=== PATIENT | female | born 1975 | race Caucasian/White ===

== ENCOUNTER 2018-04-02 18:38 | Emergency (ER) | payer OTHER ==
[~2018-04-02] VITALS: Ht 172.7 cm; Wt 99.8 kg
[~2018-04-02 18:38] MED LIST: AMITRIPTYLINE H25 M3 PO; AMITRIPTYLINE H50 M3 PO; AMOXICILLIN875 MG; AMOXICILLIN875 MG PO; CALCIUM PO; CIPRO250 MG PO; CIPROFLOXACIN500 M1 PO; CYCLOBENZAPRINE10 MG PO; FLEXERIL; FLEXERIL PO; HYDROCODONE-AP1 EAC6 PO; IBUPROFEN 800800 M1 PO; IRON PO; KEFLEX500 MG PO; MULTIVITAMINS PO; NAPROSYN500 MG PO; NORCO 5-325 TA1 EAC1 PO; NORCO 5-325 TA1 EACH PO; OMEPRAZOLE5 GM MC; PHENERGAN12.5 M2 RC; PREDNISONE 20 M20 MG PO; PROAIR HFA8.5 GM INH; PROTONIX40 M1 PO; ROBAXIN 750 MG750 MG PO; TRAMADOL 50 MG50 MG; TRAMADOL 50 MG50 MG PO; VICODIN; VITAMIN D400 UNI1 PO; ZOFRAN ODT4 MG PO; ZOFRAN4 MG PO; [UNRECOGNIZED DRUG - OTHER]
[2018-04-02] MEDS ORDERED: NORCO 5-325 TA1 EACH PO (19:49)
[2018-04-02] MEDS ORDERED: NABUMETONE 750750 M1 PO (19:49)
[2018-04-02 20:24] VITALS: BP 116/83
== END 2018-04-02 20:25 | disposition home or self-care (01) ==
LOC: M.ERS 18:38
DX: T22.212A Burn of second degree of left forearm, initial encounter (principal); T20.10XA Burn of first degree of head, face, and neck, unspecified site, initial encounter; T20.17XA Burn of first degree of neck, initial encounter; G43.909 Migraine, unspecified, not intractable, without status migrainosus; Z90.710 Acquired absence of both cervix and uterus; T65.91XA Toxic effect of unspecified substance, accidental (unintentional), initial encounter; Y92.9 Unspecified place or not applicable

== ENCOUNTER 2018-04-08 21:19 | Emergency (ER) | payer OTHER ==
[~2018-04-08] VITALS: Ht 172.7 cm; Wt 99.8 kg
[~2018-04-08 21:19] MED LIST changes: +NABUMETONE 750750 M1 PO
[2018-04-08 21:40] LABS: URINE BLOOD 2+ (Negative); URINE CLARITY CLEAR; URINE COLOR YELLOW; URINE GLUCOSE-RANDOM NEGATIVE (Negative); URINE KETONES 1+ (Negative); URINE LEUKOCYTES-REFLEX NEGATIVE (Negative); URINE NITRITE-REFLEX NEGATIVE (Negative); URINE PROTEIN NEGATIVE (Negative); URINE SPECIFIC GRAVITY >= 1.030 (1.005-1.030); URINE UROBILINOGEN 0.2 E.U./dl (0.2-1.0)
[2018-04-08 21:47] LABS: ICTOTEST (BILI CONFIRMATORY) Negative (Negative); URINE BILIRUBIN 1+ (Negative)
[2018-04-08 21:48] LABS: BACTERIA-REFLEX >30 Many /HPF (None Seen); CRYSTALS None Seen /LPF (None Seen); MUCUS 0-3 Light strn/LPF (None Seen); SQUAMOUS >10 Many /LPF (0-3); URINE WBC-REFLEX 0-5 Rare /HPF (0-5)
[2018-04-08 21:49] LABS: CASTS None Seen /LPF (None Seen); URINE RBC 3-10 Few /HPF (0-2)
[2018-04-08 21:54] LABS: HEMATOCRIT 44.6 % (37.0-47.0); MCH 32.4 pg (26.0-34.0); MCHC 33.7 g/dL (28.0-37.0); MCV 96.2 fL (80.0-100.0); MPV 8.4 fl. (7.2-11.1); NUCLEATED RBCS 0 /100WBC; PLATELET COUNT* 228 thou/uL (150-400); RBC 4.64 mil/uL (4.20-5.00); RDW-CV 12.7 % (10.5-14.5)
[2018-04-08 21:59] LABS: CALCIUM 9.6 mg/dL (8.5-10.1); CREATININE 0.8 mg/dL (0.6-1.3); POTASSIUM 3.6 mmol/L (3.5-5.1)
[2018-04-08 22:04] LABS: ALBUMIN 3.8 g/dL (3.4-5.0); TOTAL BILIRUBIN 0.7 mg/dL (<0.1-1.0); TOTAL PROTEIN 8.4 g/dL (6.4-8.2)
[2018-04-08 22:20] LABS: INFLUENZA A ANTIGEN None Detected (None Detect); INFLUENZA B ANTIGEN None Detected (None Detect)
[2018-04-08 22:47] LABS: ABSOLUTE EOSINOPHILS 0.2 thou/uL (0.0-0.7); ABSOLUTE LYMPHOCYTES 2.2 thou/uL (0.8-5.3); ABSOLUTE MONOCYTES 1.8 thou/uL (0.0-1.2); ABSOLUTE NEUTROPHILS 17.8 thou/uL (1.6-8.1)
[2018-04-08 22:48] LABS: PLATELET ESTIMATE ADEQUATE
[2018-04-09] MEDS ORDERED: ZOFRAN4 MG PO (00:36)
[2018-04-09 00:52] VITALS: BP 156/97
== END 2018-04-09 00:55 | disposition still patient (30) ==
LOC: M.ERS 21:19
PROVIDERS: Physician Assistant
DX: R11.2 Nausea with vomiting, unspecified (principal); G43.909 Migraine, unspecified, not intractable, without status migrainosus; Z90.710 Acquired absence of both cervix and uterus; Z79.899 Other long term (current) drug therapy

== ENCOUNTER 2018-10-08 08:05 | Emergency (ER) | payer OTHER ==
[~2018-10-08] VITALS: Ht 172.7 cm; Wt 104.3 kg
[2018-10-08] MEDS ORDERED: PROTONIX 20 MG20 MG PO (08:15)
[2018-10-08] MEDS ORDERED: CYCLOBENZAPRINE5 MG PO (08:42)
[2018-10-08] MEDS ORDERED: NORCO 5-325 TA1 EACH PO (08:42)
[2018-10-08] MEDS ORDERED: IBUPROFEN 800800 MG PO (08:42)
[2018-10-08 08:53] VITALS: BP 142/88
== END 2018-10-08 08:53 | disposition home or self-care (01) ==
LOC: M.ERS 08:05
DX: S86.811A Strain of other muscle(s) and tendon(s) at lower leg level, right leg, initial encounter (principal); G43.909 Migraine, unspecified, not intractable, without status migrainosus; Z90.710 Acquired absence of both cervix and uterus; W18.39XA Other fall on same level, initial encounter; Y93.89 Activity, other specified; Y92.89 Other specified places as the place of occurrence of the external cause; Y99.8 Other external cause status

== ENCOUNTER 2019-02-26 16:24 | Emergency (ER) | payer OTHER ==
[~2019-02-26] VITALS: Ht 172.7 cm; Wt 106.6 kg
[~2019-02-26 16:24] MED LIST changes: +CYCLOBENZAPRINE5 MG PO; +IBUPROFEN 800800 MG PO; +PROTONIX 20 MG20 MG PO
[2019-02-26] MEDS ORDERED: OMEPRAZOLE10 MG PO (16:40)
[2019-02-26] MEDS ORDERED: TRAZODONE HCL50 MG PO (16:40)
[2019-02-26] MEDS ORDERED: FLEXERIL PO (17:45)
[2019-02-26 18:05] VITALS: BP 127/83
== END 2019-02-26 18:07 | disposition home or self-care (01) ==
LOC: M.ERS 16:24
DX: M62.830 Muscle spasm of back (principal); G43.909 Migraine, unspecified, not intractable, without status migrainosus; Z90.710 Acquired absence of both cervix and uterus

== ENCOUNTER 2020-01-13 07:50 | Emergency (ER) | payer BC ==
[~2020-01-13] VITALS: Ht 175.3 cm; Wt 113.4 kg
[~2020-01-13 07:50] MED LIST changes: +OMEPRAZOLE10 MG PO; +TRAZODONE HCL50 MG PO
[2020-01-13] MEDS ORDERED: LIPITOR 20 MG T20 M1 PO (07:56)
[2020-01-13] MEDS ORDERED: HORMONE PATCH (07:56)
[2020-01-13] MEDS ORDERED: FLEXERIL PO (07:56)
[2020-01-13 08:22] LABS: ABSOLUTE BASOPHILS 0.1 thou/uL (0.0-0.2); ABSOLUTE LYMPHOCYTES 1.8 thou/uL (0.8-5.3); ABSOLUTE MONOCYTES 0.5 thou/uL (0.0-1.2); ABSOLUTE NEUTROPHILS 10.8 thou/uL (1.6-8.1); BASOPHILS 0.5 %; EOSINOPHILS 0.1 %; HEMATOCRIT 43.6 % (37.0-47.0); HEMOGLOBIN 15.2 gm/dL (12.0-15.0); LYMPHOCYTES 13.9 %; MCH 32.9 pg (26.0-34.0); MCHC 34.8 g/dL (28.0-37.0); MCV 94.4 fL (80.0-100.0); MONOCYTES 3.9 %; MPV 8.3 fl. (7.2-11.1); NUCLEATED RBCS 0 /100WBC; PLATELET COUNT* 227 thou/uL (150-400); POLYS 81.6 %; RBC 4.62 mil/uL (4.20-5.00); RDW-CV 12.3 % (10.5-14.5); WBC 13.2 thou/uL (4.0-11.0)
[2020-01-13 08:29] LABS: CALCIUM 8.9 mg/dL (8.5-10.1); CREATININE 0.9 mg/dL (0.6-1.3); POTASSIUM 3.8 mmol/L (3.5-5.1)
[2020-01-13 08:33] LABS: TOTAL BILIRUBIN 0.2 mg/dL (<0.1-1.0)
[2020-01-13 09:46] LABS: URINE BILIRUBIN NEGATIVE (Negative); URINE BLOOD NEGATIVE (Negative); URINE CLARITY CLEAR; URINE COLOR YELLOW; URINE GLUCOSE-RANDOM NEGATIVE (Negative); URINE KETONES 1+ (Negative); URINE LEUKOCYTES-REFLEX NEGATIVE (Negative); URINE NITRITE-REFLEX NEGATIVE (Negative); URINE PROTEIN NEGATIVE (Negative); URINE UROBILINOGEN 0.2 E.U./dl (0.2-1.0)
[2020-01-13] MEDS ORDERED: PROTONIX40 M1 PO (10:51)
[2020-01-13] MEDS ORDERED: ZOFRAN ODT4 MG PO (10:51)
[2020-01-13 10:56] VITALS: BP 148/77
--- NOTE | 2020-01-13 16:03 | EKG ---
[place] [address] ELECTROCARDIOGRAM REPORT Name: CHANG HUGHES Room: [facility]#: [id number] Admission: 01/13/20 Attend Phys: Discharge: 01/13/20 Date of : 71 Date of Service: 01/13/20 0839 Report #: [id number] THIS REPORT FOR: //name// [facility] ED Test Date: 2020-01-13 Test Time: 08:39:02 Pat Name: CHANG HUGHES Department: Room: Gender: F Advisory Intern: : 1975 Requested By: Santana Estrella Order Number: [id number] MD: Ramos Loco Measurements Intervals [place] Rate: 97 P: 70 MS: 177 QRS: 7 QRSD: 108 T: 44 QT: 382 QTc: 486 Interpretive Statements Sinus rhythm Borderline prolonged QT interval Compared to ECG 04/18/2011 09:46:51 Sinus tachycardia no longer present Electronically Signed On 01-13-2020 16:03:29 CDT by Ramos Loco [email or web address] <ELECTRONICALLY SIGNED> By: Ramos Loco MD, [facility] 01/13/20 1603 0839 0839 Ramos Loco MD, [facility] /EPI
== END 2020-01-13 10:57 | disposition home or self-care (01) ==
LOC: M.ERS 07:50
PROVIDERS: Family Medicine
DX: R11.2 Nausea with vomiting, unspecified (principal); F10.129 Alcohol abuse with intoxication, unspecified; Y90.1 Blood alcohol level of 20-39 mg/100 ml; R10.13 Epigastric pain; G43.909 Migraine, unspecified, not intractable, without status migrainosus; Z90.710 Acquired absence of both cervix and uterus

== ENCOUNTER 2020-03-28 01:39 | Emergency (ER) | payer OTHER ==
[~2020-03-28] VITALS: Ht 175.3 cm; Wt 113.4 kg
[~2020-03-28 01:39] MED LIST changes: +HORMONE PATCH; +LIPITOR 20 MG T20 M1 PO
[2020-03-28 02:14] LABS: ABSOLUTE BASOPHILS 0.1 thou/uL (0.0-0.2); ABSOLUTE LYMPHOCYTES 2.9 thou/uL (0.8-5.3); ABSOLUTE NEUTROPHILS 13.3 thou/uL (1.6-8.1); BASOPHILS 0.6 %; EOSINOPHILS 0.2 %; HEMATOCRIT 45.2 % (37.0-47.0); HEMOGLOBIN 15.7 gm/dL (12.0-15.0); LYMPHOCYTES 16.7 %; MCH 32.9 pg (26.0-34.0); MCHC 34.7 g/dL (28.0-37.0); MCV 94.8 fL (80.0-100.0); MONOCYTES 5.6 %; MPV 8.4 fl. (7.2-11.1); NUCLEATED RBCS 0 /100WBC; PLATELET COUNT* 265 thou/uL (150-400); POLYS 76.9 %; RBC 4.77 mil/uL (4.20-5.00); RDW-CV 13.4 % (10.5-14.5); WBC 17.3 thou/uL (4.0-11.0)
[2020-03-28 02:21] LABS: URINE BILIRUBIN NEGATIVE (Negative); URINE BLOOD TRACE (Negative); URINE CLARITY CLEAR; URINE COLOR YELLOW; URINE GLUCOSE-RANDOM NEGATIVE (Negative); URINE KETONES 1+ (Negative); URINE LEUKOCYTES-REFLEX NEGATIVE (Negative); URINE NITRITE-REFLEX NEGATIVE (Negative); URINE PROTEIN NEGATIVE (Negative); URINE SPECIFIC GRAVITY 1.025 (1.005-1.030); URINE UROBILINOGEN 0.2 E.U./dl (0.2-1.0)
[2020-03-28 02:23] LABS: CALCIUM 9.5 mg/dL (8.5-10.1); POTASSIUM 3.5 mmol/L (3.5-5.1)
[2020-03-28 02:27] LABS: ALBUMIN 4.2 g/dL (3.4-5.0); TOTAL BILIRUBIN 0.5 mg/dL (<0.1-1.0); TOTAL PROTEIN 8.6 g/dL (6.4-8.2)
[2020-03-28 02:28] LABS: AMP/METHAMP Negative (Negative); BARBITURATES Negative (Negative); BENZODIAZEPINES Negative (Negative); COCAINE Negative (Negative); METHADONE Negative (Negative); OPIATES Negative (Negative); PCP Negative (Negative); THC POSITIVE (Negative)
[2020-03-28] MEDS ORDERED: CARAFATE 1 GM TA1 GM PO (03:24)
[2020-03-28] MEDS ORDERED: PREVACID 24HR15 MG PO (03:24)
[2020-03-28] MEDS ORDERED: ZOFRAN ODT4 MG PO (03:24)
[2020-03-28 04:00] VITALS: BP 130/79
== END 2020-03-28 04:01 | disposition home or self-care (01) ==
LOC: M.ERS 01:39
PROVIDERS: Personal Emergency Response Attendant
DX: R11.2 Nausea with vomiting, unspecified (principal); G43.909 Migraine, unspecified, not intractable, without status migrainosus; Z90.710 Acquired absence of both cervix and uterus

== ENCOUNTER 2020-04-02 07:09 | Emergency (ER) | payer OTHER ==
[~2020-04-02] VITALS: Ht 175.3 cm; Wt 113.4 kg
[~2020-04-02 07:09] MED LIST changes: +CARAFATE 1 GM TA1 GM PO; +PREVACID 24HR15 MG PO
[2020-04-02 07:34] LABS: ABSOLUTE BASOPHILS 0.1 thou/uL (0.0-0.2); ABSOLUTE LYMPHOCYTES 1.8 thou/uL (0.8-5.3); ABSOLUTE MONOCYTES 0.5 thou/uL (0.0-1.2); ABSOLUTE NEUTROPHILS 7.8 thou/uL (1.6-8.1); BASOPHILS 0.7 %; EOSINOPHILS 0.2 %; HEMATOCRIT 42.4 % (37.0-47.0); HEMOGLOBIN 15.1 gm/dL (12.0-15.0); LYMPHOCYTES 17.6 %; MCH 33.7 pg (26.0-34.0); MCHC 35.6 g/dL (28.0-37.0); MCV 94.7 fL (80.0-100.0); MONOCYTES 5.3 %; MPV 7.8 fl. (7.2-11.1); NUCLEATED RBCS 0 /100WBC; PLATELET COUNT* 258 thou/uL (150-400); POLYS 76.2 %; RBC 4.48 mil/uL (4.20-5.00); RDW-CV 13.6 % (10.5-14.5); WBC 10.3 thou/uL (4.0-11.0)
[2020-04-02 07:47] LABS: CALCIUM 9.1 mg/dL (8.5-10.1); CREATININE 0.8 mg/dL (0.6-1.3); POTASSIUM 3.5 mmol/L (3.5-5.1)
[2020-04-02 07:51] LABS: TOTAL BILIRUBIN 0.3 mg/dL (<0.1-1.0); TOTAL PROTEIN 8.1 g/dL (6.4-8.2)
[2020-04-02 09:03] LABS: URINE BILIRUBIN NEGATIVE (Negative); URINE BLOOD NEGATIVE (Negative); URINE CLARITY CLEAR; URINE COLOR YELLOW; URINE GLUCOSE-RANDOM NEGATIVE (Negative); URINE KETONES 1+ (Negative); URINE LEUKOCYTES-REFLEX NEGATIVE (Negative); URINE NITRITE-REFLEX NEGATIVE (Negative); URINE PROTEIN NEGATIVE (Negative); URINE SPECIFIC GRAVITY 1.025 (1.005-1.030); URINE UROBILINOGEN 0.2 E.U./dl (0.2-1.0)
[2020-04-02] MEDS ORDERED: ZOFRAN ODT4 MG DISSOLVE (09:12)
[2020-04-02] MEDS ORDERED: CARAFATE1 GM PO (09:12)
[2020-04-02 09:24] VITALS: BP 118/86
--- NOTE | 2020-04-03 12:10 | EKG ---
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: : 1975 Requested By: Fran Robertson Order Number: [id number] MD: Ramos Loco Measurements Intervals [place] Rate: 99 P: 67 [place]: 162 QRS: 18 QRSD: 93 T: 32 QT: 377 QTc: 484 Interpretive Statements Sinus tachycardia Borderline low voltage, extremity leads Compared to ECG 01/13/2020 08:39:02 Sinus rhythm no longer present Electronically Signed On 04-03-2020 12:10:26 CDT by Ramos Loco [email or web address] <ELECTRONICALLY SIGNED> By: Ramos Loco MD, [facility] 04/03/20 1210 0737 0737 Ramos Loco MD, [facility] /EPI
== END 2020-04-02 09:28 | disposition home or self-care (01) ==
LOC: M.ERS 07:09
PROVIDERS: Emergency Medicine Emergency Medical Services
DX: F12.10 Cannabis abuse, uncomplicated (principal); R11.2 Nausea with vomiting, unspecified; G43.909 Migraine, unspecified, not intractable, without status migrainosus; Z90.710 Acquired absence of both cervix and uterus

== ENCOUNTER 2020-08-26 17:36 | Emergency (ER) | payer OTHER ==
[~2020-08-26] VITALS: Ht 175.3 cm; Wt 113.4 kg
[~2020-08-26 17:36] MED LIST changes: +CARAFATE1 GM PO; +ZOFRAN ODT4 MG DISSOLVE
[2020-08-26] MEDS ORDERED: LISINOPRIL10 MG PO (17:46)
[2020-08-26 17:59] LABS: ABSOLUTE LYMPHOCYTES 3.6 thou/uL (0.8-5.3); ABSOLUTE MONOCYTES 0.7 thou/uL (0.0-1.2); ABSOLUTE NEUTROPHILS 8.6 thou/uL (1.6-8.1); BASOPHILS 0.4 %; EOSINOPHILS 0.4 %; HEMATOCRIT 46.9 % (37.0-47.0); HEMOGLOBIN 15.8 gm/dL (12.0-15.0); LYMPHOCYTES 27.8 %; MCH 31.4 pg (26.0-34.0); MCHC 33.8 g/dL (28.0-37.0); MONOCYTES 5.6 %; MPV 7.5 fl. (7.2-11.1); NUCLEATED RBCS 0 /100WBC; PLATELET COUNT* 311 thou/uL (150-400); POLYS 65.8 %; RBC 5.04 mil/uL (4.20-5.00); RDW-CV 12.7 % (10.5-14.5)
[2020-08-26 18:07] LABS: CREATININE 0.8 mg/dL (0.6-1.3); POTASSIUM 3.9 mmol/L (3.5-5.1)
[2020-08-26 18:11] LABS: ALBUMIN 4.3 g/dL (3.4-5.0); TOTAL BILIRUBIN 0.5 mg/dL (<0.1-1.0); TOTAL PROTEIN 8.7 g/dL (6.4-8.2)
[2020-08-26 18:48] LABS: URINE BLOOD NEGATIVE (Negative); URINE CLARITY CLEAR; URINE COLOR YELLOW; URINE GLUCOSE-RANDOM NEGATIVE (Negative); URINE KETONES 1+ (Negative); URINE LEUKOCYTES-REFLEX NEGATIVE (Negative); URINE NITRITE-REFLEX NEGATIVE (Negative); URINE PROTEIN 1+ (Negative); URINE SPECIFIC GRAVITY >= 1.030 (1.005-1.030); URINE UROBILINOGEN 0.2 E.U./dl (0.2-1.0)
[2020-08-26 18:49] LABS: ICTOTEST (BILI CONFIRMATORY) Negative (Negative); URINE BILIRUBIN 1+ (Negative)
[2020-08-26 19:06] VITALS: BP 128/72
[2020-08-26] MEDS ORDERED: ONDANSETRON ODT4 MG PO (21:21)
[2020-08-26] MEDS ORDERED: PROMS25 WY RECTAL (21:21)
== END 2020-08-26 19:07 | disposition home or self-care (01) ==
LOC: M.ERS 17:36
PROVIDERS: Physician Assistant
DX: R11.2 Nausea with vomiting, unspecified (principal); G43.909 Migraine, unspecified, not intractable, without status migrainosus; Z90.710 Acquired absence of both cervix and uterus

== ENCOUNTER 2020-08-26 20:34 | Emergency (ER) | payer OTHER ==
[~2020-08-26] VITALS: Ht 396.2 cm; Wt 113.4 kg
[~2020-08-26 20:34] MED LIST changes: +LISINOPRIL10 MG PO
[2020-08-26] MEDS ORDERED: PROMS25 WY RECTAL (21:21)
[2020-08-26] MEDS ORDERED: ONDANSETRON ODT4 MG PO (21:21)
[2020-08-26 22:40] VITALS: BP 159/105
== END 2020-08-26 22:41 | disposition home or self-care (01) ==
LOC: M.ERS 20:34
DX: R11.2 Nausea with vomiting, unspecified (principal); G43.909 Migraine, unspecified, not intractable, without status migrainosus; Z90.710 Acquired absence of both cervix and uterus

== ENCOUNTER 2021-01-30 04:00 | Emergency (ER) | payer OTHER ==
[~2021-01-30] VITALS: Ht 175.3 cm; Wt 99.8 kg
[~2021-01-30 04:00] MED LIST changes: +ONDANSETRON ODT4 MG PO; +PROMS25 WY RECTAL
[2021-01-30 04:05] VITALS: BP 150/86
--- NOTE | 2021-01-30 04:44 | NUR ---
PT UNABLE TO TOLERATE EKG AT THIS TIME
[2021-01-30 04:48] LABS: HEMATOCRIT 39.3 % (37.0-47.0); HEMOGLOBIN 13.4 gm/dL (12.0-15.0); MCH 31.7 pg (26.0-34.0); MCHC 34.1 g/dL (28.0-37.0); MCV 92.8 fL (80.0-100.0); MPV 8.1 fl. (7.2-11.1); NUCLEATED RBCS 0 /100WBC; PLATELET COUNT* 220 thou/uL (150-400); RBC 4.23 mil/uL (4.20-5.00); RDW-CV 13.3 % (10.5-14.5); WBC 13.5 thou/uL (4.0-11.0)
[2021-01-30 05:02] LABS: CALCIUM 8.7 mg/dL (8.5-10.1); CREATININE 0.8 mg/dL (0.6-1.3); POTASSIUM 3.8 mmol/L (3.5-5.1)
[2021-01-30 05:06] LABS: ALBUMIN 4.1 g/dL (3.4-5.0); TOTAL BILIRUBIN 0.4 mg/dL (<0.1-1.0); TOTAL PROTEIN 7.8 g/dL (6.4-8.2)
[2021-01-30 05:48] LABS: ABSOLUTE LYMPHOCYTES 1.6 thou/uL (0.8-5.3); ABSOLUTE MONOCYTES 0.1 thou/uL (0.0-1.2); ABSOLUTE NEUTROPHILS 11.7 thou/uL (1.6-8.1); ANISOCYTOSIS 1+; PLATELET ESTIMATE ADEQUATE; POIKILOCYTOSIS 1+
[2021-01-30 06:38] LABS: AMP/METHAMP Negative (Negative); BARBITURATES Negative (Negative); BENZODIAZEPINES Negative (Negative); COCAINE Negative (Negative); METHADONE Negative (Negative); OPIATES Negative (Negative); PCP Negative (Negative); THC POSITIVE (Negative)
[2021-01-30] MEDS ORDERED: PROMS25 WY RECTAL (06:40)
[2021-01-30 06:47] VITALS: BP 141/87
== END 2021-01-30 06:47 | disposition home or self-care (01) ==
LOC: M.ERS 04:00 → M.TBA-ER 06:35 → M.ERS 06:47
PROVIDERS: Personal Emergency Response Attendant
DX: T51.91XA Toxic effect of unspecified alcohol, accidental (unintentional), initial encounter (principal); K29.70 Gastritis, unspecified, without bleeding; K92.0 Hematemesis; G43.909 Migraine, unspecified, not intractable, without status migrainosus; Z90.710 Acquired absence of both cervix and uterus; Y92.89 Other specified places as the place of occurrence of the external cause

== ENCOUNTER 2021-02-12 07:19 | Emergency (ER) | payer OTHER ==
[~2021-02-12] VITALS: Ht 165.1 cm; Wt 99.8 kg
[2021-02-12 07:52] LABS: HEMOGLOBIN 14.5 gm/dL (12.0-15.0); MCH 30.9 pg (26.0-34.0); MCHC 33.6 g/dL (28.0-37.0); MPV 7.6 fl. (7.2-11.1); NUCLEATED RBCS 0 /100WBC; PLATELET COUNT* 289 thou/uL (150-400); RBC 4.67 mil/uL (4.20-5.00); RDW-CV 13.4 % (10.5-14.5); WBC 11.1 thou/uL (4.0-11.0)
[2021-02-12 08:09] LABS: CALCIUM 9.3 mg/dL (8.5-10.1); CREATININE 0.8 mg/dL (0.6-1.3); POTASSIUM 3.9 mmol/L (3.5-5.1)
[2021-02-12 08:13] LABS: ALBUMIN 4.3 g/dL (3.4-5.0); TOTAL BILIRUBIN 0.3 mg/dL (<0.1-1.0); TOTAL PROTEIN 8.3 g/dL (6.4-8.2)
[2021-02-12 08:37] VITALS: BP 127/79
[2021-02-12 09:09] LABS: ABSOLUTE MONOCYTES 0.2 thou/uL (0.0-1.2); ABSOLUTE NEUTROPHILS 9.9 thou/uL (1.6-8.1)
[2021-02-12 09:10] LABS: PLATELET ESTIMATE ADEQUATE
--- NOTE | 2021-02-12 10:52 | EKG ---
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 : 1975 Requested By: Fran Robertson Order Number: [id number] MD: Kilo Dumont Measurements Intervals [place] Rate: 90 P: 53 NM: 160 QRS: 33 QRSD: 100 T: 54 QT: 401 QTc: 491 Interpretive Statements Sinus rhythm Low voltage, extremity leads Borderline prolonged QT interval Baseline wander in lead(s) V2 Compared to ECG 04/02/2020 07:37:37 Sinus tachycardia no longer present Electronically Signed On 02-12-2021 10:52:05 CDT by Kilo Dumont [email or web address] <ELECTRONICALLY SIGNED> By: Blaine Dumont MD, [facility] 02/12/21 1052 0735 0735 Blaine Dumont MD, [facility] /EPI
== END 2021-02-12 08:37 | disposition left against medical advice (07) ==
LOC: M.ERS 07:19
PROVIDERS: Emergency Medicine Emergency Medical Services
DX: R11.15 Cyclical vomiting syndrome unrelated to migraine (principal); G43.909 Migraine, unspecified, not intractable, without status migrainosus; J32.9 Chronic sinusitis, unspecified; Z90.710 Acquired absence of both cervix and uterus; Z79.899 Other long term (current) drug therapy